=== PATIENT | female | born 1965 | race American Indian/Alaskan Native ===

== ENCOUNTER 2017-04-14 09:17 | Emergency (ER) | payer OTHER ==
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
[2017-04-14] MEDS ORDERED: NORCO 5/325 PO ONE (11:51)
[2017-04-14] MEDS ORDERED: ZOFRAN ODT PO ONE (11:52)
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
--- NOTE | 2017-04-14 12:34 | XRay Report ---
ROUTINE CHEST, TWO VIEWS: HISTORY: chest pain. The trachea, heart, mediastinal contour, lung brown and bony thorax are unremarkable. IMPRESSION: Unremarkable chest x-ray.
[2017-04-14 13:12] VITALS: BP 125/80
== END 2017-04-14 14:13 | disposition home or self-care (01) ==
LOC: ED 09:17
DX: S16.1XXA Strain of muscle, fascia and tendon at neck level, initial encounter (principal); M79.1 Myalgia; F12.10 Cannabis abuse, uncomplicated; Z88.8 Allergy status to other drugs, medicaments and biological substances; R51 Headache; V43.52XA Car driver injured in collision with other type car in traffic accident, initial encounter; Y93.9 Activity, unspecified; Y99.9 Unspecified external cause status; Y92.410 Unspecified street and highway as the place of occurrence of the external cause
CPT/HCPCS: 70450; 71020; 72125; 72131; 99284; Q0162